=== PATIENT | female | born 2000 | race Caucasian/White ===

== ENCOUNTER 2022-10-12 15:45 | Emergency (ER) | payer OTHER ==
[~2022-10-12] VITALS: Ht 170.2 cm; Wt 113.7 kg
[2022-10-12] MEDS ORDERED: AMOX875T2 PO (17:04)
[2022-10-12 17:14] LABS: BASO # 0.1 10^3/uL (0.0-0.2); BASO % 0.8 % (0.0-1.0); EOS # 0.4 10^3/uL (0.0-0.5); EOS % 3.2 % (0.0-3.0); HEMATOCRIT 40.8 % (36.0-47.0); HEMOGLOBIN 13.8 g/dl (12.0-15.5); LYMPH # 3.5 10^3/uL (1.5-5.0); LYMPH % 28.2 % (24.0-44.0); MEAN CORPUSCULAR HGB CONC 33.8 g/dl (32.0-36.5); MEAN CORPUSCULAR VOLUME 88.7 fl (80.0-96.0); MONO # 0.9 10^3/uL (0.0-0.8); MONO % 7.3 % (2.0-8.0); NEUTROPHILS # 7.4 10^3/uL (1.5-8.5); NEUTROPHILS % 60.1 % (36.0-66.0); PLATELET COUNT, AUTOMATED 399 10^3/uL (150-450); WHITE BLOOD COUNT 12.3 10^3/uL (4.0-10.0)
[2022-10-12 17:27] LABS: LIPASE 38 U/L (12-53)
[2022-10-12 17:28] LABS: ALBUMIN 3.6 G/DL (3.2-5.2); ALKALINE PHOSPHATASE 96 U/L (46-116); ALT/SGPT 17 U/L (7.0-40); AST/SGOT 9 U/L (<34); BILIRUBIN,DIRECT < 0.1 MG/DL (<0.4); BILIRUBIN,TOTAL 0.2 MG/DL (0.3-1.2); BLOOD UREA NITROGEN 12 MG/DL (9-23); CARBON DIOXIDE LEVEL 27 MMOL/L (20-31); CHLORIDE LEVEL 103 MMOL/L (98-107); CREATININE FOR GFR 0.73 MG/DL (0.55-1.30); GLOMERULAR FILTRATION RATE > 60.0 (>60); GLUCOSE, FASTING 112 MG/DL (60-100); POTASSIUM SERUM 4.2 MMOL/L (3.5-5.1); SODIUM LEVEL 139 MMOL/L (136-145); TOTAL PROTEIN 7.2 G/DL (5.7-8.2)
[2022-10-12 17:42] LABS: RSV AMPLIFICATION NEGATIVE (NEGATIVE)
[2022-10-12] MEDS ORDERED: ISOVUE-370 76% 100ML VIAL As Ordered ONE (19:13)
[2022-10-12 20:04] LABS: CK-MB VALUE MASS < 1.0 NG/ML (<3.6)
[2022-10-12 20:07] LABS: CPK CREATINE PHOSPHOKINASE 55 U/L (34-145); MB/CK RELATIVE INDEX 1.81 (< OR =4)
[2022-10-12] MEDS ORDERED: BENZ200C70 PO (20:32)
[2022-10-12 20:36] VITALS: BP 130/88; TEMP 98.8; O2SAT 98
== END 2022-10-12 20:40 | disposition home or self-care (01) ==
LOC: M ED 18:59
DX: J06.9 Acute upper respiratory infection, unspecified (principal); R05.9 Cough, unspecified
CPT/HCPCS: 71046; 71275; 80048; 80076; 81001; 82550; 82553; 83690; 83880; 84484; 84702; 85025; 87631; 87880; 93005; 93970; 99284; Q9967

== ENCOUNTER → 2023-01-21 | Outpatient (CLI) | payer OTHER ==
[~2023-01-21] MED LIST: AMOX875T2 PO; BENZ200C70 PO
== END ==
LOC: M WHC 13:46
PROVIDERS: ATTEND Nurse Practitioner Family
DX: N63.10 Unspecified lump in the right breast, unspecified quadrant (principal)

== ENCOUNTER → 2023-03-26 | Outpatient (CLI) | payer OTHER ==
[~2023-03-26] MED LIST changes: +METHACHOLINE KIT INH ONE
== END ==
LOC: M CARPUL 07:43
PROVIDERS: ATTEND Physician Assistant
DX: R06.00 Dyspnea, unspecified (principal)
CPT/HCPCS: 94070; J7674

== ENCOUNTER 2023-09-07 12:43 | Emergency (ER) | payer OTHER ==
[~2023-09-07] VITALS: Ht 170.2 cm; Wt 115.4 kg
[~2023-09-07 12:43] MED LIST changes: -METHACHOLINE KIT INH ONE
[2023-09-07 13:25] LABS: BASO # 0.1 10^3/uL (0.0-0.2); BASO % 0.7 % (0.0-1.0); EOS # 0.2 10^3/uL (0.0-0.5); EOS % 1.6 % (0.0-3.0); HEMATOCRIT 40.4 % (36.0-47.0); HEMOGLOBIN 13.7 g/dl (12.0-15.5); LYMPH # 2.9 10^3/uL (1.5-5.0); LYMPH % 25.6 % (24.0-44.0); MEAN CORPUSCULAR HEMOGLOBIN 29.9 pg (27.0-33.0); MEAN CORPUSCULAR HGB CONC 33.9 g/dl (32.0-36.5); MEAN CORPUSCULAR VOLUME 88.2 fl (80.0-96.0); MONO # 0.8 10^3/uL (0.0-0.8); MONO % 7.1 % (2.0-8.0); NEUTROPHILS # 7.4 10^3/uL (1.5-8.5); NEUTROPHILS % 64.6 % (36.0-66.0); PLATELET COUNT, AUTOMATED 340 10^3/uL (150-450); RED BLOOD COUNT 4.58 10^6/uL (4.00-5.40); WHITE BLOOD COUNT 11.4 10^3/uL (4.0-10.0)
[2023-09-07 13:54] LABS: BILIRUBIN,DIRECT 0.1 MG/DL (<0.4); BILIRUBIN,TOTAL 0.4 MG/DL (0.3-1.2); HCG, SERUM QUANTITATIVE 290.7 MIU/ML (<4.2); TOTAL PROTEIN 7.1 G/DL (5.7-8.2)
[2023-09-07] MEDS: ONDANSETRON 4MG 2ML VIAL IV ONE (14:02)
[2023-09-07 15:15] VITALS: BP 134/79; TEMP 97; O2SAT 99
[2023-09-07 15:26] LABS: GC DNA AMPLIFICATION NEGATIVE (NEGATIVE)
[2023-09-07] MEDS ORDERED: ONDA-282 PO (15:41)
[2023-09-07 15:43] LABS: Trichomonas vaginalis (AMP) NOT DETECTED (NEGATIVE)
== END 2023-09-07 15:47 | disposition home or self-care (01) ==
LOC: M ED 12:43
DX: O26.899 Other specified pregnancy related conditions, unspecified trimester (principal); R19.7 Diarrhea, unspecified; R10.9 Unspecified abdominal pain; Z79.899 Other long term (current) drug therapy
CPT/HCPCS: 80047; 80076; 81001; 83690; 84702; 85025; 87210; 87661; 87810; 87850; 96374; 99284; J2405

== ENCOUNTER → 2023-09-09 | Outpatient (REF) | payer OTHER ==
[~2023-09-09] MED LIST changes: +ONDA-282 PO
== END ==
LOC: M LAB REF 15:03
PROVIDERS: ATTEND Physician Assistant
DX: R19.7 Diarrhea, unspecified (principal)

== ENCOUNTER 2024-03-18 15:25 | Emergency (ER) | payer OTHER ==
[~2024-03-18] VITALS: Ht 170.2 cm; Wt 109.1 kg
[2024-03-18] MEDS: IBUPROFEN 600MG TAB PO ONE (16:47)
[2024-03-18 18:43] LABS: BASO # 0.1 10^3/uL (0.0-0.2); BASO % 0.5 % (0.0-1.0); EOS % 0.2 % (0.0-3.0); HEMATOCRIT 40.3 % (36.0-47.0); HEMOGLOBIN 13.6 g/dl (12.0-15.5); LYMPH % 12.5 % (24.0-44.0); MEAN CORPUSCULAR HEMOGLOBIN 29.8 pg (27.0-33.0); MEAN CORPUSCULAR HGB CONC 33.7 g/dl (32.0-36.5); MEAN CORPUSCULAR VOLUME 88.2 fl (80.0-96.0); MONO # 1.4 10^3/uL (0.0-0.8); MONO % 8.4 % (2.0-8.0); NEUTROPHILS # 12.8 10^3/uL (1.5-8.5); PLATELET COUNT, AUTOMATED 311 10^3/uL (150-450); RED BLOOD COUNT 4.57 10^6/uL (4.00-5.40); WHITE BLOOD COUNT 16.4 10^3/uL (4.0-10.0)
[2024-03-18 19:15] LABS: HCG, SERUM QUALITATIVE NEGATIVE (NEGATIVE)
[2024-03-18 19:28] LABS: MONO SCRN NEGATIVE (NEGATIVE)
[2024-03-18] MEDS ORDERED: ISOVUE-370 76% 100ML VIAL As Ordered ONE (19:42)
[2024-03-18 19:55] VITALS: BP 112/57; TEMP 99.5; O2SAT 98
[2024-03-18] MEDS ORDERED: IBUP-1022 PO (20:53)
[2024-03-18] MEDS ORDERED: AMOX875T2 PO (20:53)
[2024-03-18] MEDS: AUGMENTIN 875 MG TAB PO ONE (20:54)
== END 2024-03-18 21:15 | disposition home or self-care (01) ==
LOC: M ED 15:25
DX: R59.0 Localized enlarged lymph nodes (principal); R50.9 Fever, unspecified; Z79.1 Long term (current) use of non-steroidal anti-inflammatories (NSAID); Z79.2 Long term (current) use of antibiotics; Z79.899 Other long term (current) drug therapy
CPT/HCPCS: 36415; 70491; 80047; 84703; 85025; 86308; 87486; 87581; 87633; 87798; 87880; 99284; Q9967

== ENCOUNTER 2024-03-23 20:58 | Emergency (ER) | payer OTHER ==
[~2024-03-23] VITALS: Ht 170.2 cm; Wt 113.0 kg
[~2024-03-23 20:58] MED LIST changes: +IBUP-1022 PO
[2024-03-23 22:17] LABS: BASO # 0.1 10^3/uL (0.0-0.2); BASO % 0.5 % (0.0-1.0); EOS # 0.1 10^3/uL (0.0-0.5); EOS % 0.8 % (0.0-3.0); HEMATOCRIT 40.5 % (36.0-47.0); HEMOGLOBIN 13.5 g/dl (12.0-15.5); LYMPH # 2.9 10^3/uL (1.5-5.0); LYMPH % 19.5 % (24.0-44.0); MEAN CORPUSCULAR HEMOGLOBIN 28.8 pg (27.0-33.0); MEAN CORPUSCULAR HGB CONC 33.3 g/dl (32.0-36.5); MEAN CORPUSCULAR VOLUME 86.5 fl (80.0-96.0); MONO # 1.2 10^3/uL (0.0-0.8); MONO % 7.8 % (2.0-8.0); NEUTROPHILS # 10.5 10^3/uL (1.5-8.5); NEUTROPHILS % 70.2 % (36.0-66.0); PLATELET COUNT, AUTOMATED 379 10^3/uL (150-450); RED BLOOD COUNT 4.68 10^6/uL (4.00-5.40); WHITE BLOOD COUNT 14.9 10^3/uL (4.0-10.0)
[2024-03-23 22:51] LABS: ALBUMIN 3.3 G/DL (3.2-5.2); ALKALINE PHOSPHATASE 124 U/L (35-104); ALT/SGPT 24 U/L (7.0-40); AST/SGOT 20 U/L (<34); BILIRUBIN,TOTAL 0.3 MG/DL (0.3-1.2); BLOOD UREA NITROGEN 13 MG/DL (9-23); CALCIUM LEVEL 8.8 MG/DL (8.5-10.1); CARBON DIOXIDE LEVEL 24 MMOL/L (20-31); CHLORIDE LEVEL 102 MMOL/L (98-107); CREATININE FOR GFR 0.84 MG/DL (0.55-1.30); GLOMERULAR FILTRATION RATE > 60.0 (>60); GLUCOSE, FASTING 92 MG/DL (60-100); POTASSIUM SERUM 4.6 MMOL/L (3.5-5.1); SODIUM LEVEL 137 MMOL/L (136-145); TOTAL PROTEIN 8.2 G/DL (5.7-8.2)
[2024-03-24 00:36] LABS: URINE PREG TEST NEGATIVE (NEGATIVE)
[2024-03-24 00:42] LABS: KETONE, URINE AUTO RFX NEGATIVE (NEGATIVE); LEUKOCYTE ESTERASE UR AUTO RFX NEGATIVE (NEGATIVE); MUCUS, URINE RFX SMALL (NEGATIVE); NITRITE, URINE AUTO RFX NEGATIVE (NEGATIVE); RBC, URINE AUTO RFX 1 /HPF (0-3); SQUAM EPITHELIAL CELL UR AURFX 0 /HPF (0-6); WBC, URINE AUTO RFX 2 /HPF (0-3)
[2024-03-24] MEDS: KETOROLAC 30 MG/ML 1ML VIAL IV ONE (01:48)
[2024-03-24 02:22] LABS: INR 1.03; PROTHROMBIN TIME 13.8 SECONDS (12.5-14.5)
[2024-03-24] MEDS ORDERED: VITA100093 PO (06:04)
[2024-03-24] MEDS ORDERED: IBUP1TAB6 PO (06:04)
[2024-03-24] MEDS ORDERED: HOME MED LIST COMPLETE! XX SCH (06:05)
[2024-03-24] MEDS: CLINDAMYCIN 600 MG in IV 1 EA IV ONE (06:23)
[2024-03-24] MEDS: dexAMETHasone 20MG/5ML VIAL IV ONE (06:23)
[2024-03-24] MEDS ORDERED: BACI1TAB20 PO (06:29)
[2024-03-24] MEDS ORDERED: CLIN-250 PO (06:29)
[2024-03-24 06:46] VITALS: BP 110/70; TEMP 97.1; O2SAT 97
== END 2024-03-24 06:57 | disposition home or self-care (01) ==
LOC: M ED 20:58
DX: J03.91 Acute recurrent tonsillitis, unspecified (principal); Z79.1 Long term (current) use of non-steroidal anti-inflammatories (NSAID); Z79.2 Long term (current) use of antibiotics
CPT/HCPCS: 70450; 71046; 80053; 81001; 84703; 85025; 85610; 85730; 87070; 87486; 87581; 87633; 87798; 87880; 93005; 96374; 96375; 99285; J0737; J1100; J1885

== ENCOUNTER → 2024-06-24 | Outpatient (REF) | payer OTHER ==
[~2024-06-24] MED LIST changes: +BACI1TAB20 PO; +CLIN-250 PO; +IBUP1TAB6 PO; +VITA100093 PO
== END ==
LOC: M LAB REF 17:11
PROVIDERS: ATTEND Otolaryngology
DX: J35.01 Chronic tonsillitis (principal)